=== PATIENT | female | born 1990 | race Caucasian/White ===

== ENCOUNTER 2018-04-09 14:35 | Emergency (ER) | payer MEDICAID, OTHER ==
[~2018-04-09] VITALS: Ht 157.5 cm; Wt 50.0 kg
[~2018-04-09 14:35] MED LIST: CYCL-1 PO; HYDR-4383 PO; NITR100C6 PO
[2018-04-09 14:46] VITALS: BP 101/54
[2018-04-09 15:31] LABS: PREOP URINE HCG NEGATIVE (NEGATIVE)
[2018-04-09 15:41] LABS: CLARITY,URINE SLIGHTLY CLOUDY (Clear); COLOR,URINE YELLOW (Yellow); GLUCOSE, URINE NEGATIVE (Neg); KETONES,URINE NEGATIVE (Neg); LEUKOCYTE ESTERASE ,URINE NEGATIVE (Neg); NITRITES, URINE POSITIVE (Neg); OCCULT BLOOD,URINE MODERATE (Neg); PH,URINE 6.5 (4.8-8.0); PROTEIN,URINE NEGATIVE (Neg); UROBILINOGEN,URINE 0.2 E.U/dL (0.2-1.0)
[2018-04-09 15:56] LABS: UA COLLECTION TYPE CLN CATCH MIDSTREAM
[2018-04-09 15:57] LABS: BACTERIA,URINE 4+ /HPF (Neg); SQUAMOUS EPITHELIAL CELL,UR MODERATE /LPF (FEW); WBC,URINE 20-30 /HPF (0-4)
[2018-04-09] MEDS ORDERED: ondansetron 4mg rapidly disintigrating tab PO ONE (17:05)
[2018-04-09] MEDS ORDERED: acetaminophen 325mg tablet PO ONE (17:05)
[2018-04-09] MEDS ORDERED: ONDA4TAB6 PO (17:09)
[2018-04-09] MEDS ORDERED: SULF1TAB49 PO (17:09)
--- NOTE | 2018-04-09 17:30 | NUR ---
Patient seen and assessed by provider.
== END 2018-04-09 17:36 | disposition home or self-care (01) ==
LOC: ER 14:35
DX: N10 Acute pyelonephritis (principal); Z79.899 Other long term (current) drug therapy; Z98.51 Tubal ligation status
CPT/HCPCS: 81001; 81025; 87077; 87088; 87186; 99283

== ENCOUNTER 2018-05-26 13:11 | Emergency (ER) | payer MEDICAID ==
[~2018-05-26 13:11] MED LIST changes: +ONDA4TAB6 PO
--- NOTE | 2018-05-27 12:40 | NUR ---
Left VM for patient to return.
== END 2018-05-26 14:59 | disposition left against medical advice (07) ==
LOC: ER 13:12
DX: M25.539 Pain in unspecified wrist (principal); Z53.21 Procedure and treatment not carried out due to patient leaving prior to being seen by health care provider

== ENCOUNTER 2018-06-11 22:57 | Emergency (ER) | payer MEDICAID ==
[~2018-06-11] VITALS: Ht 157.5 cm; Wt 50.0 kg
[2018-06-11] MEDS ORDERED: HYDROcodone/acetaminophen 5mg/325mg tablet PO ONE (23:20)
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
--- NOTE | 2018-06-12 01:28 | NUR ---
s.o. present in ER for patient
--- NOTE | 2018-06-12 01:47 | NUR ---
pt signed release of information to Monique Lunsford and JONI. Document in pt chart
[2018-06-12] MEDS ORDERED: HYDROcodone/acetaminophen 10/325mg tab PO ONE (02:25)
[2018-06-12] MEDS ORDERED: HYDR-4383 PO (02:41)
[2018-06-12] MEDS ORDERED: NAPR-56 PO (02:41)
== END 2018-06-12 03:07 | disposition home or self-care (01) ==
LOC: ER 22:58 → EEVIPCON 22:58 → ER 06-12 03:07
DX: S42.031A Displaced fracture of lateral end of right clavicle, initial encounter for closed fracture (principal); S00.12XA Contusion of left eyelid and periocular area, initial encounter; R68.84 Jaw pain; F17.210 Nicotine dependence, cigarettes, uncomplicated; Z98.51 Tubal ligation status; Z98.890 Other specified postprocedural states; Z79.899 Other long term (current) drug therapy; Y04.2XXA Assault by strike against or bumped into by another person, initial encounter; Y93.89 Activity, other specified; Y92.009 Unspecified place in unspecified non-institutional (private) residence as the place of occurrence of the external cause; Y99.8 Other external cause status
CPT/HCPCS: 71045; 73030; 73200; 99284

== ENCOUNTER 2018-10-27 21:48 | Emergency (ER) | payer MEDICAID ==
[~2018-10-27] VITALS: Ht 157.5 cm; Wt 47.3 kg
[~2018-10-27 21:48] MED LIST changes: -CYCL-1 PO; -HYDR-4383 PO; -NITR100C6 PO; +NO HOME MEDS; -ONDA4TAB6 PO
[2018-10-27] MEDS ORDERED: PROP10TA10 PO (23:53)
[2018-10-28 00:03] VITALS: BP 110/72
== END 2018-10-28 00:04 | disposition home or self-care (01) ==
LOC: ER 21:51
DX: R00.2 Palpitations (principal); R07.89 Other chest pain; R06.02 Shortness of breath; R05 Cough; F17.210 Nicotine dependence, cigarettes, uncomplicated; F41.9 Anxiety disorder, unspecified; Z98.890 Other specified postprocedural states; Z98.51 Tubal ligation status; Z88.2 Allergy status to sulfonamides; Z88.8 Allergy status to other drugs, medicaments and biological substances; Z79.899 Other long term (current) drug therapy
CPT/HCPCS: 71045; 93005; 99283

== ENCOUNTER 2018-10-28 12:15 | Day surgery (SDC) | payer MEDICAID ==
[2018-10-28] VITALS (9 sets, daily range): BP systolic 93–131; BP diastolic 54–81
[~2018-10-28] VITALS: Ht 157.5 cm; Wt 47.2 kg
[~2018-10-28 12:15] MED LIST changes: +PROP10TA10 PO; +albuterol 2.5 MG/3 ML nebule NEB ONE; +cefazolin/dext.iso 2gm/100 ML IV ONE; +famotidine 20mg tablet PO ONE; +ringers solution, lacted 1,000 ML IV SCH
[2018-10-28 12:39] LABS: BASOPHILS # (AUTO) 0.1 X10'3 (0-0.2); BASOPHILS % (AUTO) 0.8 % (0-1); EOSINOPHILS % (AUTO) 0.3 % (0-6); LYMPHOCYTES # (AUTO) 1.2 X10'3 (1.1-4.8); LYMPHOCYTES % (AUTO) 17.1 % (21-51); MEAN CORPUSCULAR HEMOGLOBIN 27.8 PG (27.0-31.0); MEAN CORPUSCULAR HGB CONC 32.1 g/dL (33.0-36.5); MEAN CORPUSCULAR VOLUME 86.6 FL (78-98); MEAN PLATELET VOLUME 7.8 FL (7.4-10.4); MONOCYTES # (AUTO) 0.4 X10'3 (0-0.9); NEUTROPHILS # (AUTO) 5.2 X10'3 (1.8-7.7); NEUTROPHILS % (AUTO) 75.8 % (42-75); PRE OP HEMATOCRIT 32.8 % (35.0-45.0); PRE OP PLATELET COUNT 377 X10'3 (140-440); RED BLOOD COUNT 3.79 X10'6 (4.20-5.60); RED CELL DISTRIBUTION WIDTH 16.6 % (11.5-14.5)
[2018-10-28 12:42] LABS: PRE OP HEMOGLOBIN 10.5 g/dL (12.0-16.0)
[2018-10-28 12:46] LABS: HCG SERUM QL NEGATIVE
[2018-10-28] MEDS ORDERED: ringers solution, lacted 1,000 ML IV SCH (12:46)
[2018-10-28] MEDS ORDERED: labetalol 20mg/4ml (5mg/ml) syringe IV PRN (12:50)
[2018-10-28] MEDS ORDERED: hydrALAZINE 20mg/ml inj. IV PRN (12:50)
[2018-10-28] MEDS ORDERED: ondansetron/PF 4mg/2ml inj IV PRN (12:50)
[2018-10-28] MEDS ORDERED: morphine 4 MG/ML inj SYRINge IV PRN ×2 (12:50)
[2018-10-28] MEDS ORDERED: fentaNYL/PF 50MCG/1 ML 2ML syringe IV PRN ×2 (12:50)
[2018-10-28] MEDS ORDERED: ROPIVAcaine 0.5% (5mg/ml) 30ml vial ONE (13:09)
[2018-10-28] MEDS ORDERED: sevoflurane 250ml liquid IH ONE (13:11)
[2018-10-28] MEDS ORDERED: dexamethasone sod phosphate 10mg/ml inj ONE (13:11)
[2018-10-28] MEDS ORDERED: fentaNYL/PF 50MCG/1 ML 2ML syringe ONE ×2 (13:12→13:57)
[2018-10-28] MEDS ORDERED: midazolam 2 mg/2 ml injection ONE (13:12)
[2018-10-28] MEDS ORDERED: LIDOcaine 1%/PF 5ML 10 MG/ML VIAL ONE (13:13)
[2018-10-28] MEDS ORDERED: ondansetron/PF 4mg/2ml inj ONE (13:13)
[2018-10-28] MEDS ORDERED: propofol inj 20 ML IV ONE (13:13)
--- NOTE | 2018-10-28 14:06 | NUR ---
Received from OR via , accompanied by Anesthesiologist DR RICHEY and report given by Anesthesiolgist. AWAKENS TO VOICE. VITALS STABLE. DRESSING DI. HARINI PAIN.
--- NOTE | 2018-10-28 15:26 | NUR ---
AWAKE AND ORIENTED. VITALS STABLE. DRESSING DI. HARINI PAIN. RUE IN SIMPLE SLING. HOME WITH HER MOM AT THIS TIME.
== END 2018-10-28 15:26 | disposition home or self-care (01) ==
LOC: PAS 12:15
PROVIDERS: ATTEND Orthopaedic Surgery
DX: T84.84XA Pain due to internal orthopedic prosthetic devices, implants and grafts, initial encounter (principal); Y83.8 Other surgical procedures as the cause of abnormal reaction of the patient, or of later complication, without mention of misadventure at the time of the procedure; Z98.890 Other specified postprocedural states
CPT/HCPCS: 20680; 36415; 82948; 84703; 85025; J1100; J2250; J2405; J2704; J3010; J7120; A4618; A7000; J2795

== ENCOUNTER 2020-01-10 15:34 | Emergency (ER) | payer MEDICAID ==
[~2020-01-10] VITALS: Ht 157.5 cm; Wt 54.5 kg
[~2020-01-10 15:34] MED LIST changes: -PROP10TA10 PO; -albuterol 2.5 MG/3 ML nebule NEB ONE; -cefazolin/dext.iso 2gm/100 ML IV ONE; -famotidine 20mg tablet PO ONE; -ringers solution, lacted 1,000 ML IV SCH
[2020-01-10 18:43] VITALS: BP 113/71
[2020-01-10] MEDS ORDERED: ONDA4TAB6 PO (18:44)
== END 2020-01-10 19:20 | disposition home or self-care (01) ==
LOC: ER 15:34
DX: S06.0X0A Concussion without loss of consciousness, initial encounter (principal); F17.200 Nicotine dependence, unspecified, uncomplicated; Z98.51 Tubal ligation status; Z98.890 Other specified postprocedural states; Z88.2 Allergy status to sulfonamides; Z88.1 Allergy status to other antibiotic agents; Z79.899 Other long term (current) drug therapy; W01.198A Fall on same level from slipping, tripping and stumbling with subsequent striking against other object, initial encounter; Y93.01 Activity, walking, marching and hiking; Y92.89 Other specified places as the place of occurrence of the external cause; Y99.8 Other external cause status
CPT/HCPCS: 70450; 99284

== ENCOUNTER 2020-02-22 13:52 | Emergency (ER) | payer MEDICAID ==
[~2020-02-22] VITALS: Ht 160 cm; Wt 60.0 kg
[~2020-02-22 13:52] MED LIST changes: +ONDA4TAB6 PO
[2020-02-22 14:09] VITALS: BP 128/62
== END 2020-02-22 15:17 | disposition home or self-care (01) ==
LOC: ER 13:52
DX: U07.1 COVID-19 (principal); F17.210 Nicotine dependence, cigarettes, uncomplicated; Z88.2 Allergy status to sulfonamides; Z88.8 Allergy status to other drugs, medicaments and biological substances; Z79.899 Other long term (current) drug therapy; Z98.51 Tubal ligation status; Z98.890 Other specified postprocedural states
CPT/HCPCS: 87635; 99283

== ENCOUNTER 2020-11-20 10:54 | Emergency (ER) | payer MEDICAID, OTHER | END 2020-11-20 18:23 | disposition left against medical advice (07) | LOC: ER 10:55 | DX: R45.851 Suicidal ideations (principal); Z53.21 Procedure and treatment not carried out due to patient leaving prior to being seen by health care provider ==

== ENCOUNTER 2022-05-27 15:11 | Emergency (ER) | payer SELFPAY ==
[~2022-05-27] VITALS: Ht 157.5 cm; Wt 54.5 kg
[2022-05-27 15:48] VITALS: BP 133/64
== END 2022-05-27 20:01 | disposition left against medical advice (07) ==
LOC: ER 15:12
DX: R51.9 Headache, unspecified (principal); Z04.3 Encounter for examination and observation following other accident; Z53.21 Procedure and treatment not carried out due to patient leaving prior to being seen by health care provider

== ENCOUNTER 2022-07-27 11:59 | Emergency (ER) | payer SELFPAY ==
[~2022-07-27] VITALS: Ht 157.5 cm; Wt 42.6 kg
[2022-07-27 12:19] VITALS: BP 98/49
== END 2022-07-27 14:16 | disposition home or self-care (01) ==
LOC: ER 12:00
DX: S93.601A Unspecified sprain of right foot, initial encounter (principal); Z87.448 Personal history of other diseases of urinary system; Z88.2 Allergy status to sulfonamides; Z88.8 Allergy status to other drugs, medicaments and biological substances; Z79.899 Other long term (current) drug therapy; X58.XXXA Exposure to other specified factors, initial encounter; Y93.89 Activity, other specified; Y92.89 Other specified places as the place of occurrence of the external cause; Y99.8 Other external cause status
CPT/HCPCS: 29515; 73630; 99283; L1930; A6449

== ENCOUNTER 2023-02-09 10:59 | Emergency (ER) | payer SELFPAY ==
[~2023-02-09] VITALS: Ht 157.5 cm; Wt 48.6 kg
[2023-02-09 11:38] LABS: BASOPHILS # (AUTO) 0.1 X10'3 (0-0.2); BASOPHILS % (AUTO) 0.9 % (0-1); EOSINOPHILS # (AUTO) 0.1 X10'3 (0-0.9); EOSINOPHILS % (AUTO) 1.5 % (0-6); HEMATOCRIT 37.5 % (35.0-45.0); HEMOGLOBIN 12.6 g/dl (12.0-16.0); LYMPHOCYTES # (AUTO) 1.8 X10'3 (1.1-4.8); LYMPHOCYTES % (AUTO) 26.6 % (21-51); MEAN CORPUSCULAR HEMOGLOBIN 31.1 PG (27.0-31.0); MEAN CORPUSCULAR HGB CONC 33.6 g/dL (33.0-36.5); MEAN CORPUSCULAR VOLUME 92.5 FL (78-98); MEAN PLATELET VOLUME 7.4 FL (7.4-10.4); MONOCYTES # (AUTO) 0.3 X10'3 (0-0.9); NEUTROPHILS # (AUTO) 4.5 X10'3 (1.8-7.7); PLATELET COUNT 339 X10'3 (140-440); RED BLOOD COUNT 4.06 X10'6 (4.20-5.60); RED CELL DISTRIBUTION WIDTH 14.9 % (11.5-14.5); WHITE BLOOD COUNT 6.8 X10'3 (4.5-11.0)
[2023-02-09 11:58] LABS: ALANINE AMINOTRANSFERASE 25 U/L (12-78); ALBUMIN 4.2 G/DL (3.4-5.0); ALBUMIN/GLOBULIN RATIO 1.2 (1.1-1.5); ALKALINE PHOSPHATASE 58 IU/L (46-116); ANION GAP 9 (8-16); ASPARTATE AMINO TRANSFERASE 22 U/L (10-37); BILIRUBIN,TOTAL 0.3 MG/DL (0.1-1.0); BLOOD UREA NITROGEN 12 MG/DL (7-18); BUN/CREATININE RATIO 15.2 (10.0-20.0); CALCIUM 9.1 MG/DL (8.5-10.1); CHLORIDE 105 MMOL/L (99-107); CREATININE 0.79 MG/DL (0.40-0.90); GLUCOSE 87 MG/DL (70-104); POTASSIUM 3.7 MMOL/L (3.5-5.1); SODIUM 141 MMOL/L (135-145); TOTAL CARBON DIOXIDE 27.2 MMOL/L (24-32); TOTAL PROTEIN 7.7 G/DL (6.4-8.2); eCRCL 78 ML/MIN; eGFR 84 ML/MIN
[2023-02-09 12:13] LABS: ETHANOL 16 MG/DL (<10); MAGNESIUM 2.2 MG/DL (1.5-2.4); PRO BRAIN NATRIURETIC PEPTIDE < 30 PG/ML (0-125)
[2023-02-09 12:36] LABS: URINE AMPHETAMINE SCREEN NEGATIVE (Neg); URINE BARBITUATE SCREEN NEGATIVE (Neg); URINE BENZODIAZEPINES SCREEN NEGATIVE (Neg); URINE CANNABINOID SCREEN NEGATIVE (Neg); URINE COCAINE SCREEN NEGATIVE (Neg); URINE METHADONE SCREEN NEGATIVE (Neg); URINE OPIATE SCREEN NEGATIVE (Neg); URINE PHENCYCLIDINE SCREEN NEGATIVE (Neg)
--- NOTE | 2023-02-09 12:37 | NUR ---
I AGREE WITH THE ASSESSMENT DONE BY ONEIL HARRIS LVN.
[2023-02-09 13:35] VITALS: BP 101/69; PULSE 76; RESP 18; TEMP 97.6; O2SAT 99
== END 2023-02-09 13:37 | disposition home or self-care (01) ==
LOC: ER 11:00
DX: R07.89 Other chest pain (principal); Z98.51 Tubal ligation status; Z98.890 Other specified postprocedural states; Z72.89 Other problems related to lifestyle; Z88.2 Allergy status to sulfonamides; Z88.8 Allergy status to other drugs, medicaments and biological substances; Z79.899 Other long term (current) drug therapy
CPT/HCPCS: 36415; 71045; 80053; 80305; 80320; 83735; 83880; 84484; 85025; 93005; 99285

== ENCOUNTER 2023-07-02 14:40 | Inpatient (IN) | payer MEDICAID ==
[~2023-07-02] VITALS: Ht 158.8 cm; Wt 50.7 kg
[2023-07-02 16:09] LABS: BASOPHILS # (AUTO) 0.1 X10'3 (0-0.2); BASOPHILS % (AUTO) 1.1 % (0-1); EOSINOPHILS % (AUTO) 0.4 % (0-6); HEMATOCRIT 36.9 % (35.0-45.0); HEMOGLOBIN 12.1 g/dl (12.0-16.0); LYMPHOCYTES # (AUTO) 1.8 X10'3 (1.1-4.8); LYMPHOCYTES % (AUTO) 25.4 % (21-51); MEAN CORPUSCULAR HEMOGLOBIN 28.9 PG (27.0-31.0); MEAN CORPUSCULAR HGB CONC 32.9 g/dL (33.0-36.5); MEAN CORPUSCULAR VOLUME 87.8 FL (78-98); MEAN PLATELET VOLUME 7.2 FL (7.4-10.4); MONOCYTES # (AUTO) 0.4 X10'3 (0-0.9); MONOCYTES % (AUTO) 6.4 % (2-12); NEUTROPHILS # (AUTO) 4.6 X10'3 (1.8-7.7); NEUTROPHILS % (AUTO) 66.7 % (42-75); PLATELET COUNT 478 X10'3 (140-440); RED BLOOD COUNT 4.21 X10'6 (4.20-5.60); RED CELL DISTRIBUTION WIDTH 15.2 % (11.5-14.5); WHITE BLOOD COUNT 6.9 X10'3 (4.5-11.0)
[2023-07-02 16:29] LABS: ALBUMIN 4.2 G/DL (3.4-5.0); ANION GAP 7 (8-16); BLOOD UREA NITROGEN 8 MG/DL (7-18); BUN/CREATININE RATIO 10.8 (10.0-20.0); CALCIUM 8.8 MG/DL (8.5-10.1); CHLORIDE 107 MMOL/L (99-107); CREATININE 0.74 MG/DL (0.40-0.90); ETHANOL 59 MG/DL (<10); GLUCOSE 92 MG/DL (70-104); POTASSIUM 4.1 MMOL/L (3.5-5.1); SODIUM 143 MMOL/L (135-145); THYROID STIMULATING HORMONE 5.74 ulU/ml (0.34-4.50); TOTAL CARBON DIOXIDE 29.1 MMOL/L (24-32); eCRCL 85 ML/MIN; eGFR 90 ML/MIN
[2023-07-02 16:31] LABS: URINE HCG NEGATIVE (NEG)
[2023-07-02 16:33] LABS: BILIRUBIN,URINE NEGATIVE (Neg); CLARITY,URINE SLIGHTLY CLOUDY (Clear); COLOR,URINE YELLOW (Yellow); GLUCOSE, URINE NEGATIVE (Neg); KETONES,URINE NEGATIVE (Neg); LEUKOCYTE ESTERASE ,URINE NEGATIVE (Neg); NITRITES, URINE NEGATIVE (Neg); OCCULT BLOOD,URINE TRACE-INTACT (Neg); PROTEIN,URINE NEGATIVE (Neg); UROBILINOGEN,URINE 0.2 E.U/dL (0.2-1.0)
[2023-07-02 16:36] LABS: URINE AMPHETAMINE SCREEN NEGATIVE (Neg); URINE BARBITUATE SCREEN NEGATIVE (Neg); URINE BENZODIAZEPINES SCREEN NEGATIVE (Neg); URINE CANNABINOID SCREEN NEGATIVE (Neg); URINE COCAINE SCREEN POSITIVE (Neg); URINE METHADONE SCREEN NEGATIVE (Neg); URINE OPIATE SCREEN NEGATIVE (Neg); URINE PHENCYCLIDINE SCREEN NEGATIVE (Neg)
[2023-07-02 16:48] LABS: UA COLLECTION TYPE CLN CATCH MIDSTREAM
[2023-07-02 16:49] LABS: SQUAMOUS EPITHELIAL CELL,UR FEW /LPF (FEW)
[2023-07-02 16:52] LABS: RBC,URINE 0-2 /HPF (0-2); WBC,URINE 0-4 /HPF (0-4)
[2023-07-02 16:53] LABS: BACTERIA,URINE FEW /HPF (Neg); MUCUS STRANDS MODERATE /LPF (Neg)
[2023-07-02] MEDS: acetaminophen 325mg tablet PO ONE (19:52)
[2023-07-03] MEDS ORDERED: LEVO75TA7 PO (08:22)
[2023-07-03] MEDS: levoTHYROXINE 75mcg tablet PO ONE (08:40)
[2023-07-03] MEDS: acetaminophen 325mg tablet PO ONE (13:13)
[2023-07-03 15:20] VITALS: BP 106/62; PULSE 61; RESP 18; TEMP 98; O2SAT 99
[2023-07-03] MEDS ORDERED: loperamide 2mg capsule PO PRN (15:25)
[2023-07-03] MEDS ORDERED: acetaminophen 325mg tablet PO PRN (15:25)
[2023-07-03] MEDS ORDERED: magnesium hydroxide 30ml (MOM) UD suspension PO PRN (15:25)
[2023-07-03] MEDS ORDERED: mag hydrox/Alum hydrox/simeth 30ml oral suspension PO PRN (15:25)
[2023-07-03 15:53] VITALS: RESP 18; O2SAT 99
[2023-07-03] MEDS: acetaminophen 325mg tablet PO PRN (16:57)
[2023-07-03 19:01] VITALS: RESP 16; O2SAT 96
[2023-07-03 20:00] VITALS: BP 109/66; PULSE 72; RESP 16; TEMP 98.3; O2SAT 96
[2023-07-04 02:00] VITALS: BP 104/52; PULSE 65; RESP 14; O2SAT 98
[2023-07-04 07:35] VITALS: RESP 18; O2SAT 99
[2023-07-04 08:00] VITALS: BP 141/80; PULSE 76; RESP 16; TEMP 97.6; O2SAT 93
[2023-07-04 08:42] LABS: HEMOGLOBIN A1C 5.8 % (4.5-6.2)
[2023-07-04 08:47] LABS: CHOL/HDL RATIO 2.7 (0.00-4.99); CHOLESTEROL 178 MG/DL (0-200); HDL CHOLESTEROL 67 MG/DL (35-60); LDL CHOLESTEROL 90 MG/DL (50-100); TRIGLYCERIDES 104 MG/DL (20-135)
[2023-07-04] MEDS: levoTHYROXINE 75mcg tablet PO SCH (08:48)
[2023-07-04 19:00] VITALS: BP 107/63; PULSE 62; RESP 17; TEMP 99.2; O2SAT 99
[2023-07-04] MEDS: traZODone 50mg tablet PO ONE (21:13)
[2023-07-05 06:49] VITALS: RESP 18; O2SAT 99
[2023-07-05] MEDS ORDERED: levoTHYROXINE 75mcg tablet PO SCH (07:00)
[2023-07-05 07:16] VITALS: BP 93/48; PULSE 68; RESP 16; TEMP 97.3; O2SAT 97
[2023-07-05] MEDS: buPROPion SR 100mg tab PO SCH (08:27)
[2023-07-05 16:05] LABS: HBSAG SCREEN Negative (Negative); HEP B CORE AB, IGM Negative (Negative); HEP B CORE AB, TOT Negative (Negative)
[2023-07-05 19:00] VITALS: BP 109/51; PULSE 63; RESP 18; TEMP 97.4; O2SAT 98
[2023-07-05] MEDS ORDERED: traZODone 50mg tablet PO SCH (20:00)
[2023-07-05] MEDS: traZODone 50mg tablet PO SCH (20:00)
[2023-07-05] MEDS: traZODone 50mg tablet PO ONE (21:22)
[2023-07-06 07:50] VITALS: RESP 18; O2SAT 99
[2023-07-06 08:00] VITALS: BP 104/58; PULSE 66; RESP 16; TEMP 98.5; O2SAT 100
[2023-07-06 19:00] VITALS: BP 106/66; PULSE 63; RESP 17; TEMP 98.3; O2SAT 97
[2023-07-07 07:00] VITALS: BP 103/56; PULSE 80; RESP 16; TEMP 97.7; O2SAT 97
[2023-07-07] MEDS: levoTHYROXINE 25mcg tablet PO SCH (08:12)
[2023-07-07] MEDS: naltrexone 50mg tablet PO SCH (11:33)
[2023-07-07 19:00] VITALS: RESP 16; O2SAT 100
[2023-07-07 20:00] VITALS: BP 102/64; PULSE 65; RESP 16; TEMP 97.6; O2SAT 100
[2023-07-08 07:00] VITALS: RESP 16; O2SAT 99
[2023-07-08] MEDS: naltrexone 50mg tablet PO SCH (07:24)
[2023-07-08 07:56] VITALS: BP 100/62; PULSE 83; RESP 16; TEMP 97.3; O2SAT 99
[2023-07-08 19:44] VITALS: BP 120/81; PULSE 80; RESP 16; TEMP 97.6; O2SAT 98
[2023-07-08] MEDS: traZODone 50mg tablet PO SCH (20:45)
[2023-07-09 07:30] VITALS: BP 93/56; PULSE 78; RESP 15; TEMP 98.1; O2SAT 98
[2023-07-09] MEDS: buPROPion SR 100mg tab PO SCH (07:45)
[2023-07-09] MEDS: naphazoline/pheniramine eye 1 DROP BOTTLE EACHEYE PRN (11:26)
[2023-07-09] MEDS ORDERED: TRAZ-251 PO (14:32)
[2023-07-09] MEDS ORDERED: BUPR100T15 PO (14:32)
[2023-07-09] MEDS ORDERED: NALT50TA PO (14:32)
[2023-07-09] MEDS ORDERED: traZODone 50mg tablet PO SCH (20:00)
== END 2023-07-09 15:50 | disposition home or self-care (01) | DRG 751 ==
LOC: ER 14:40 → UNDOADMIN 07-03 12:20 → ED HOLD 07-03 12:20 → ADULT MH 07-03 15:19
PROVIDERS: ADMIT Psychiatry & Neurology Psychiatry; ATTEND Psychiatry & Neurology Psychiatry
PROC: GZHZZZZ Group Psychotherapy (ICD-10-PCS; principal; 2023-07-08)
DX: F33.2 Major depressive disorder, recurrent severe without psychotic features (principal); R45.851 Suicidal ideations; E03.9 Hypothyroidism, unspecified; F17.210 Nicotine dependence, cigarettes, uncomplicated; F41.9 Anxiety disorder, unspecified; J44.9 Chronic obstructive pulmonary disease, unspecified; Z20.822 Contact with and (suspected) exposure to COVID-19; F10.20 Alcohol dependence, uncomplicated; F19.10 Other psychoactive substance abuse, uncomplicated; Z98.51 Tubal ligation status; Z98.891 History of uterine scar from previous surgery; Z79.899 Other long term (current) drug therapy; Z88.2 Allergy status to sulfonamides; Z80.0 Family history of malignant neoplasm of digestive organs
CPT/HCPCS: 36415; 80048; 80061; 80305; 80320; 81001; 81025; 83036; 84439; 84443; 85025; 86704; 86705; 87081; 87340; 87811; 99285

== ENCOUNTER 2024-04-20 22:25 | Emergency (ER) | payer MEDICAID ==
[~2024-04-20] VITALS: Ht 170.2 cm; Wt 53.7 kg
[~2024-04-20 22:25] MED LIST changes: +BUPR100T15 PO; +LEVO75TA7 PO; +NALT50TA5 PO; -NO HOME MEDS; -ONDA4TAB6 PO; +TRAZ-251 PO
[2024-04-20 22:48] LABS: BILIRUBIN,URINE NEGATIVE (Neg); CLARITY,URINE CLEAR (Clear); COLOR,URINE YELLOW (Yellow); GLUCOSE, URINE NEGATIVE (Neg); KETONES,URINE NEGATIVE (Neg); LEUKOCYTE ESTERASE ,URINE NEGATIVE (Neg); NITRITES, URINE NEGATIVE (Neg); OCCULT BLOOD,URINE SMALL (Neg); PH,URINE 6.5 (4.8-8.0); PROTEIN,URINE NEGATIVE (Neg); URINE HCG NEGATIVE (NEG); UROBILINOGEN,URINE 0.2 E.U/dL (0.2-1.0)
[2024-04-20 22:48] LABS: BASOPHILS % (AUTO) 0.5 % (0-1); EOSINOPHILS # (AUTO) 0.2 X10'3 (0-0.9); EOSINOPHILS % (AUTO) 2.4 % (0-6); HEMATOCRIT 27.7 % (35.0-45.0); HEMOGLOBIN 9.2 g/dl (12.0-16.0); LYMPHOCYTES # (AUTO) 1.5 X10'3 (1.1-4.8); LYMPHOCYTES % (AUTO) 22.9 % (21-51); MEAN CORPUSCULAR HEMOGLOBIN 27.2 PG (27.0-31.0); MEAN CORPUSCULAR HGB CONC 33.3 g/dL (33.0-36.5); MEAN CORPUSCULAR VOLUME 81.9 FL (78-98); MEAN PLATELET VOLUME 7.5 FL (7.4-10.4); MONOCYTES # (AUTO) 0.7 X10'3 (0-0.9); MONOCYTES % (AUTO) 9.8 % (2-12); NEUTROPHILS # (AUTO) 4.3 X10'3 (1.8-7.7); NEUTROPHILS % (AUTO) 64.4 % (42-75); PLATELET COUNT 373 X10'3 (140-440); RED BLOOD COUNT 3.38 X10'6 (4.20-5.60); RED CELL DISTRIBUTION WIDTH 16.7 % (11.5-14.5); WHITE BLOOD COUNT 6.6 X10'3 (4.5-11.0)
[2024-04-20 22:49] LABS: UA COLLECTION TYPE CLN CATCH MIDSTREAM
[2024-04-20 22:52] LABS: BACTERIA,URINE FEW /HPF (Neg); RBC,URINE 0-2 /HPF (0-2); SQUAMOUS EPITHELIAL CELL,UR MODERATE /LPF (FEW); WBC,URINE 0-4 /HPF (0-4)
[2024-04-20 23:02] LABS: ALANINE AMINOTRANSFERASE 25 U/L (12-78); ALBUMIN 3.6 G/DL (3.4-5.0); ALKALINE PHOSPHATASE 68 IU/L (46-116); ANION GAP 8 (8-16); ASPARTATE AMINO TRANSFERASE 21 U/L (10-37); BILIRUBIN,TOTAL 0.1 MG/DL (0.1-1.0); BLOOD UREA NITROGEN 13 MG/DL (7-18); CALCIUM 8.2 MG/DL (8.5-10.1); CHLORIDE 105 MMOL/L (99-107); CREATININE 0.65 MG/DL (0.40-0.90); GLUCOSE 102 MG/DL (70-104); LIPASE 50 U/L (16-77); POTASSIUM 3.6 MMOL/L (3.5-5.1); SODIUM 140 MMOL/L (135-145); TOTAL CARBON DIOXIDE 27.5 MMOL/L (24-32); TOTAL PROTEIN 7.2 G/DL (6.4-8.2); eCRCL 96 ML/MIN; eGFR > 90 ML/MIN
[2024-04-20 23:13] VITALS: PULSE 83
[2024-04-21] MEDS: ibuprofen tablet 400 MG TABLET PO ONE (00:07)
[2024-04-21 00:51] VITALS: BP 101/72; RESP 18; TEMP 97.6; O2SAT 99
== END 2024-04-21 01:08 | disposition home or self-care (01) ==
LOC: ER 22:25
DX: R10.84 Generalized abdominal pain (principal); Z88.2 Allergy status to sulfonamides; Z88.8 Allergy status to other drugs, medicaments and biological substances; Z79.899 Other long term (current) drug therapy; Z98.51 Tubal ligation status; Z98.890 Other specified postprocedural states; Z72.89 Other problems related to lifestyle
CPT/HCPCS: 36415; 74176; 80053; 81001; 81025; 83690; 85025; 99284

== ENCOUNTER 2024-08-14 08:46 | Emergency (ER) | payer MEDICAID ==
[~2024-08-14] VITALS: Ht 160 cm; Wt 55.5 kg
[2024-08-14 08:51] VITALS: BP 123/81; PULSE 104; RESP 16; TEMP 98.2; O2SAT 94
--- NOTE | 2024-08-14 10:11 | Physician Documentation ---
History of Present Illness ~ Chief Complaint: Allergic Reaction Stated Complaint: POSS ALLERGIC REACTION Time Seen by MD: 09:55 OK to notify your PCP?: Yes Primary Medical Doctor: [facility] Source: patient Mode of Arrival: POV Exam Limitations: no limitations HPI 34-year-old female who is here due to flushing reaction that occurred after taking Niacin at 8:00 a.m. this morning. She states she has had flushing from Niacin and before but that has never been as bad as it was this morning and she decided to come to the ER because she states she was not sure if she was having a severe allergic reaction. Patient states that she does feel better than she felt an hour ago. Denies shortness of breath, difficulty swallowing, swelling of her lips or tongue. No pre arrival treatment. Medication Reconciliation Allergies: Coded Allergies: sulfamethoxazole (Verified Allergy, Severe, 02/09/23) ANAPHYLAXIS trimethoprim (Verified Allergy, Severe, 02/09/23) ANAPHYLAXIS Scheduled Bupropion HCl (Bupropion HCl Sr), 100 MG PO BIDBL Levothyroxine Sodium (Levothyroxine Sodium), 1 TAB PO QAM, (Reported) Naltrexone Hcl (Naltrexone Hcl), 100 MG PO DAILY Trazodone HCl (Trazodone HCl), 75 MG PO HS Past Medical History Past Medical History: No Pertinent History, UTI, *PSYCH* Past Surgical History: , tubal ligation Patient History: FH: COPD (chronic obstructive pulmonary disease) FATHER FH: cancer FATHER FH: diabetes mellitus MOTHER FHx: liver cancer MOTHER Psoriasis MOTHER Alcohol Use: Occasionally Drug Use: none Lives In: Home Review of Systems All Other Systems at this time: Reviewed and Negative Physical Exam Vital Signs: Temperature: 98.2, Source: Temporal, Heart Rate: 104, Respiratory Rate: 16, BP: 123/81, Pulse Oximetry: 94, Weight: 55.500 Oxygen Flow Rate: 0 Physical Exam General Appearance: Alert, WD/WN. NAD. HEENT: NCAT, PERRL, EOMI. No swelling of tongue or lips. Neck: Supple, trachea midline. Cardiovascular: RRR. No m/r/g. Lungs: CTAB. Breathing unlabored Extremities: Normal inspection. No edema. Skin: Warm/dry, normal color Neurological: Alert and oriented x4, normal gait. Psychiatric: Affect congruent with mood. Progress Results/Orders Results/Orders Vital Signs 08/14/24 08:51 Temp 98.2 Pulse 104 Resp 16 B/P (MAP) 123/81 Pulse Ox 94 O2 Flow Rate 0 Medical Decision Making Differential Dx:Considerations: Include: Anaphylaxis, Angioedema, Bronchospasm, Contact dermatitis, Drug reaction, Hypotension, Latex allergy, Renal failure, Respiratory failure, Shock, Urticaria, Other Differential Diagnosis Patient's lungs are clear, no urticaria, no evidence of anaphylactic reaction exam normal. Departure Time of Disposition: 10:08 Disposition: 01 HOME / SELF CARE / HOMELESS Impression: Primary Impression: Adverse reaction to niacin Qualified Codes: T46.7X5A - Adverse effect of peripheral vasodilators, initial encounter Condition: Stable Discharge Instructions: General Discharge Instructions Additional Instructions: Follow up with primary care provider or whoever has recommended the niacin with your B12 supplement to discuss alternative options. We mutually agreed that it was not necessary to treat you with steroids or epinephrine here in the ER as there was no evidence for any anaphylactic reaction. We discussed Benadryl but since she were driving home, we decided against giving you benadryl. When you get home, you can take 25mg to 50mg of benadryl. Referrals: NO PRIMARY CARE PROVIDER (PCP) Education Educated: Patient Educated regarding: diagnosis, treatment, need for follow up Signature Scribe Signature: x Attestation: ULYSSES Goldman August 14, 2024 10:11
== END 2024-08-14 10:14 | disposition home or self-care (01) ==
LOC: ER 08:47
DX: R23.2 Flushing (principal); T50.7X5A Adverse effect of analeptics and opioid receptor antagonists, initial encounter; Z88.2 Allergy status to sulfonamides; Z98.51 Tubal ligation status; Z79.899 Other long term (current) drug therapy; Z72.89 Other problems related to lifestyle; Z98.890 Other specified postprocedural states; Y92.89 Other specified places as the place of occurrence of the external cause
CPT/HCPCS: 99282

== ENCOUNTER 2025-03-11 09:04 | Outpatient (CLI) | payer MEDICAID ==
--- NOTE | 2025-03-11 13:34 | PROCEDURE NOTE ---
Procedure Note Providers to CC ~ Interpretation: [place] EEG Note # Demographics Type of EEG Read: - Routine EEG - video Patient Location: Outpatient First Name: Chanel Last Name: Renee Date of : 1990 Age: 35 Gender: Female Facility: [facility] Time of Initial Page (): 03/11/2025 12:06 First Contact with Site (): 03/11/2025 12:06 # EEG Interpretation Start Time of EEG Read (): 03/11/2025 09:58 Stop Time of EEG Read (): 03/11/2025 10:18 Duration: 0h 20m Technical Details: - The EEG electrodes were placed using the standard International 10-20 system of electrode placement. Video and an accessory EKG lead were used during the course of this study. - This study was recorded using the [employer] EEG software Indication: memory loss # Description Photic Stimulation: Performed Hyperventilation: performed Phases Captured: - awake - drowsy Symmetry: symmetric Posterior Dominant Rhythm: - present, attenuates on eye opening 10Hz Predominant Frequencies: - posterior dominant alpha (8-12 Hz) - abundant (50-89%) Superimposed Frequencies: - theta (4-7 Hz) - rare (<1%) Amplitude: normal Reactivity: yes Variability: yes Continuity: continuous EKG: NSR # Abnormalities Stimulation: - photic stimulation does NOT cause abnormalities - hyperventilation does NOT cause abnormalities Epileptiform Abnormalities: - NOT present Focal Slowing: no Seizure: - NOT present # Impression Impression: normal # Clinical Correlation Clinical Correlation: This is a normal EEG in the awake and drowsy state. No epileptiform discharges, focal slowing, or seizures were seen. A normal EEG does not exclude nor support the diagnosis of epilepsy. # Demographics First Name: Chanel Last Name: Renee Facility: [facility] MANA WILSON MD Mar 11, 2025 13:34
== END 2025-03-11 23:59 | disposition home or self-care (01) ==
LOC: RAD 09:04
PROVIDERS: ATTEND Neuromusculoskeletal Medicine & OMM
DX: R41.3 Other amnesia (principal)
CPT/HCPCS: 95816

== ENCOUNTER 2025-03-25 11:24 | Outpatient (CLI) | payer MEDICAID ==
--- NOTE | 2025-03-25 13:47 | RADIOLOGY REPORT ---
PROCEDURE: MR MRI HEAD INDICATION: CHRONIC POST-TRAUMATIC HEADACHE, NOT INTRACTABLE EXAM DATE: 03/25/2025 12:32 PM COMPARISON: CT HEAD on DOS: 01/10/20 TECHNIQUE: MRI of the brain without intravenous contrast. FINDINGS: Diffusion weighted images of the brain demonstrate no evidence of acute infarction. There is no evidence of acute intracranial hemorrhage, extra-axial collection, mass effect, midline shift, herniation or hydrocephalus. The ventricles, sulci and cisterns appear age appropriate. The signal intensities of the brain parenchyma are within normal limits. There are no signal abnormalities on the susceptibility weighted sequences. The major vascular flow voids are present. The visualized paranasal sinuses and mastoid air cells are clear. The surrounding soft tissues and osseous structures are unremarkable. IMPRESSION: No evidence of acute infarction, intracranial hemorrhage, mass effect or hydrocephalus.
== END 2025-03-25 23:59 | disposition home or self-care (01) ==
LOC: MRI02 11:24
PROVIDERS: ATTEND Neuromusculoskeletal Medicine & OMM
DX: G44.329 Chronic post-traumatic headache, not intractable (principal); E06.3 Autoimmune thyroiditis; R41.3 Other amnesia
CPT/HCPCS: 70551